=== PATIENT | male | born 1975 | race American Indian/Alaskan Native ===

== ENCOUNTER 2017-12-06 16:07 | Emergency (ER) | payer OTHER ==
[2017-12-06] MEDS ORDERED: Ibuprofen 800 MG Tab PO ONE (16:37)
--- NOTE | 2017-12-06 17:00 | EDM.PDOC ---
ED HPI GENERAL MEDICAL PROBLEM - General Chief Complaint: General Stated Complaint: CHILLS,FEVER,SOB Time Seen by Provider: 12/06/17 16:27 Source of Information: Reports: Patient History Limitations: Reports: No Limitations - History of Present Illness INITIAL COMMENTS - FREE TEXT/NARRATIVE: The patient presents with fever, chills, cough, shortness of breath with exertion and body aches. This started yesterday. He went to the clinic and they did a swab and CXR and that looked good. He continues with the same symptoms. He has no chest pain. He has no abdominal pain, nausea or vomiting. Onset: Gradual Duration: Day(s): (Yesterday) Severity: Moderate Improves with: Reports: None Worsens with: Reports: None Associated Symptoms: Reports: Cough, Fever/Chills. Denies: Chest Pain, Nausea/ Vomiting, Shortness of Breath Generalized Pain Score (Numeric/FACES): 6 - Related Data Allergies Allergy/AdvReac Type Severity Reaction Status Date / Time sulfamethoxazole AdvReac Diarrhea Verified 12/06/17 16:16 [From Bactrim] trimethoprim [From Bactrim] AdvReac Diarrhea Verified 12/06/17 16:16 Home Meds: Home Meds Aspirin 1 tab PO DAILY 12/06/17 [History] Azithromycin [IJD: Azithromycin] 250 mg PO DAILY #6 tab 12/06/17 [Rx] Codeine/Promethazine [Phenergan with Codeine] 5 - 10 ml PO Q6HR PRN #240 ml 04/17 [Rx] FLUoxetine HCl [Fluoxetine] 10 mg PO DAILY 12/06/17 [History] Hydrochlorothiazide 10 mg PO DAILY 12/06/17 [History] Insulin Aspart [NovoLOG] 1 dose SQ ASDIRECTED 12/06/17 [History] Insulin Glarg,Human.Rec.Analog [Lantus] 50 unit SQ BEDTIME 12/06/17 [History] Lisinopril 10 mg PO DAILY 12/06/17 [History] Simvastatin [Zocor] 25 mg PO DAILY 12/06/17 [History] buPROPion [Wellbutrin] 25 mg PO DAILY 12/06/17 [History] Past Medical History Cardiovascular History: Reports: High Cholesterol, Hypertension Respiratory History: Reports: Pneumonia, Recurrent Musculoskeletal History: Reports: Amputation, Other (See Below) Other Musculoskeletal History: Left big toe amputated in Sep 2017 d/t infection. Endocrine/Metabolic History: Reports: Diabetes, Type II - Past Surgical History Musculoskeletal Surgical History: Reports: Amputation Social & Family History - Family History Family Medical History: Noncontributory - Tobacco Use Smoking Status *Q: Light Tobacco Smoker Years of Tobacco use: 17 Packs/Tins Daily: 0.1 - Caffeine Use Caffeine Use: Reports: Coffee, Soda - Recreational Drug Use Recreational Drug Use: No ED ROS GENERAL - Review of Systems Review Of Systems: See Below Constitutional: Reports: Fever, Chills, Malaise, Weakness, Fatigue HEENT: Reports: No Symptoms Respiratory: Reports: No Symptoms Cardiovascular: Reports: No Symptoms Endocrine: Reports: No Symptoms GI/Abdominal: Reports: No Symptoms : Reports: No Symptoms Musculoskeletal: Reports: No Symptoms ED EXAM, GENERAL - Physical Exam Exam: See Below Exam Limited By: No Limitations General Appearance: Alert, No Apparent Distress Ears: Normal External Exam, Normal Canal, Normal TMs Nose: Normal Inspection Throat/Mouth: Normal Inspection Head: Atraumatic, Normocephalic Neck: Normal Inspection Respiratory/Chest: No Respiratory Distress, Lungs Clear, Normal Breath Sounds Cardiovascular: Regular Rate, Rhythm, No Edema, No Murmur GI/Abdominal: Soft, Non-Tender, No Organomegaly, No Mass Back Exam: Normal Inspection Extremities: Normal Inspection Course - Vital Signs Last Recorded V/S: Last Vital Signs Temp 101.8 F H 12/06/17 16:52 Pulse 102 H 12/06/17 16:16 Resp 18 12/06/17 16:16 BP 149/85 H 12/06/17 16:16 Pulse Ox 95 12/06/17 16:16 - Orders/Labs/Meds Orders: Active Orders 24 hr Category Date Time Status Cardiac Monitoring [RC] . DIRECTED Care 12/06/17 16:36 Active Chest 2V [CR] Stat Exams 12/06/17 16:36 Taken Labs: Laboratory Tests 12/06/17 12/06/17 12/06/17 Range/Units 16:55 16:55 16:55 WBC 11.72 H (4.23-9.07) K/mm3 RBC 4.89 (4.63-6.08) M/mm3 Hgb 13.3 L (13.7-17.5) gm/L Hct 39.5 L (40.1-51.0) % MCV 80.8 (79.0-92.2) fl MCH 27.2 (25.7-32.2) pg MCHC 33.7 (32.2-35.5) g/dl RDW Std Deviation 43.9 (35.1-43.9) fL Plt Count 222 (163-337) K/mm3 MPV 9.5 (9.4-12.3) fl Neut % (Auto) 93.4 H (34.0-67.9) % Lymph % (Auto) 2.8 L (21.8-53.1) % Bradford % (Auto) 3.2 L (5.3-12.2) % Eos % (Auto) 0.3 L (0.8-7.0) Baso % (Auto) 0.1 (0.1-1.2) % Neut # (Auto) 10.95 H (1.78-5.38) K/mm3 Lymph # (Auto) 0.33 L (1.32-3.57) K/mm3 Bradford # (Auto) 0.38 (0.30-0.82) K/mm3 Eos # (Auto) 0.03 L (0.04-0.54) K/mm3 Baso # (Auto) 0.01 (0.01-0.08) K/mm3 Manual Slide Review Normal smear Sodium 136 (136-145) mEq/L Potassium 3.7 (3.5-5.1) mEq/L Chloride 102 (98-107) mEq/L Carbon Dioxide 25 (21-32) mEq/L Anion Gap 12.7 (5-15) BUN 13 (7-18) mg/dL Creatinine 1.0 (0.7-1.3) mg/dL Est Cr Clr Drug Dosing 115.01 mL/min Estimated GFR (MDRD) > 60 (>60) mL/min BUN/Creatinine Ratio 13.0 L (14-18) Glucose 131 H (74-106) mg/dL Calcium 8.7 (8.5-10.1) mg/dL Total Bilirubin 0.4 (0.2-1.0) mg/dL AST 20 (15-37) U/L ALT 30 (16-63) U/L Alkaline Phosphatase 131 H (46-116) U/L C-Reactive Protein 3.7 H* (<1.0) mg/dL Total Protein 7.5 (6.4-8.2) g/dl Albumin 3.3 L (3.4-5.0) g/dl Globulin 4.2 gm/dL Albumin/Globulin Ratio 0.8 L (1-2) Monoscreen Negative (NEGATIVE) Meds: Medications Discontinued Medications Generic Name Dose Route Start Last Admin Trade Name Freq PRN Reason Stop Dose Admin Ibuprofen 800 mg 12/06/17 16:37 12/06/17 16:52 Motrin PO 12/06/17 16:38 800 mg ONETIME ONE Administration - Re-Assessments/Exams Free Text/Narrative Re-Assessment/Exam: 12/06/17 16:59 I ordered some labs, influenza and CXR. 12/06/17 18:22 His CXR shows bronchitis versus early pneumonia on the right side. His influenza and mono were negative. His WBC was elevated at 11.72. His CRP was elevated at 3.7. I will get him on a z-kirit and phenergan with codeine for the cough. Departure - Departure Time of Disposition: 18:25 Disposition: Home, Self-Care 01 Condition: Good Clinical Impression: Bronchitis - Discharge Information Prescriptions: Codeine/Promethazine [Phenergan with Codeine] 5 - 10 ml PO Q6HR PRN #240 ml PRN Reason: Cough Azithromycin [IJD: Azithromycin] 250 mg PO DAILY #6 tab Referrals: PCP,None [Primary Care Provider] - Collin Schrader [Physician] - 1 Week Forms: ED Department Discharge, ED Return to Work/School Form Additional Instructions: Take the z-kirit as prescribed. You can use the phenergan with codeine 5 to 10mLs every 6 hours as needed for cough. Please return if you are worse or follow up with Dr Schrader within 1 week. - My Orders Last 24 Hours: My Active Orders 12/06/17 16:36 Cardiac Monitoring [RC] . DIRECTED Chest 2V [CR] Stat - Assessment/Plan Last 24 Hours: My Active Orders 12/06/17 16:36 Cardiac Monitoring [RC] . DIRECTED Chest 2V [CR] Stat
--- NOTE | 2017-12-07 06:25 | CR ---
Chest: Two views of the chest were obtained. Comparison: No previous study. Heart size and mediastinum are normal. Central lung markings are slightly increased which are likely incidental unless patient has mild bronchitis symptoms. Lungs are otherwise clear. Bony structures are unremarkable. Impression: 1. Slight increased central lung markings likely incidental as described above. 2. Nothing acute is otherwise seen on two-view chest x-ray. Diagnostic code #2
== END 2017-12-06 18:35 | disposition home or self-care (01) ==
LOC: JD.ED 16:07
DX: J40 Bronchitis, not specified as acute or chronic (principal); E78.00 Pure hypercholesterolemia, unspecified; I10 Essential (primary) hypertension; E11.9 Type 2 diabetes mellitus without complications; F17.210 Nicotine dependence, cigarettes, uncomplicated; Z88.2 Allergy status to sulfonamides; Z88.1 Allergy status to other antibiotic agents; Z79.82 Long term (current) use of aspirin; Z79.899 Other long term (current) drug therapy; Z79.4 Long term (current) use of insulin
CPT/HCPCS: 36415; 71046; 80053; 85025; 86140; 86308; 87804; 99284; A9270; 99283

== ENCOUNTER 2017-12-09 07:27 | Emergency (ER) | payer OTHER ==
--- NOTE | 2017-12-09 08:03 | EDM.PDOC ---
ED HPI GENERAL MEDICAL PROBLEM - General Chief Complaint: Upper Extremity Injury/Pain Stated Complaint: SHOULDER PAIN Time Seen by Provider: 12/09/17 07:50 Source of Information: Reports: Patient, Family (spouse) History Limitations: Reports: No Limitations - History of Present Illness INITIAL COMMENTS - FREE TEXT/NARRATIVE: 42-year-old male presents to the ED with painful right shoulder 3 days. No known injuries or accidents. 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 At present he states there is a constant ache in the anterior aspect of his shoulder worse when he tries to lay on it at nighttime. He has very limited ability to abduct or forward flex the shoulder. Previous fractures. He has had a previous anterior dislocation of the shoulder. Denies any numbness and tingling down to his fingers or hand. Onset: Gradual Onset Date: 12/06/17 Duration: Day(s):, Getting Worse (Pain in the right shoulder for the last 3 days gradually getting worse.) Location: Reports: Upper Extremity, Right Quality: Reports: Ache, Throbbing, Other (Worse at nighttime) Severity: Moderate (Describes the pain as 8 out of 10.) Improves with: Reports: Rest Worsens with: Reports: Movement (Particularly abduction are 4 and flexion.) Context: Denies: Activity, Exercise, Lifting, Sick Contact, Trauma, Other Associated Symptoms: Denies: No Other Symptoms, Confusion, Chest Pain, Cough, cough w sputum, Diaphoresis, Fever/Chills, Headaches, Loss of Appetite, Malaise , Rash, Seizure, Shortness of Breath, Syncope 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: NSAIDS (Motrin with some relief.) Right Shoulder Pain Score (Numeric/FACES): 8 - Related Data Allergies Allergy/AdvReac Type Severity Reaction Status Date / Time sulfamethoxazole AdvReac Diarrhea Verified 12/09/17 07:42 [From Bactrim] trimethoprim [From Bactrim] AdvReac Diarrhea Verified 12/09/17 07:42 Home Meds: Home Meds Aspirin 1 tab PO DAILY 12/06/17 [History] Hydrochlorothiazide 10 mg PO DAILY 12/06/17 [History] Insulin Aspart [NovoLOG] 1 dose SQ ASDIRECTED 12/06/17 [History] Insulin Glarg,Human.Rec.Analog [Lantus] 45 unit SQ BEDTIME 12/06/17 [History] Lisinopril 10 mg PO DAILY 12/06/17 [History] Simvastatin [Zocor] 20 mg PO DAILY 12/06/17 [History] Diclofenac Sodium [Voltaren] 75 mg PO BIDMEALS #20 tab.cr 12/09/17 [Rx] Prednisone [IJD: predniSONE] 20 mg PO ASDIRECTED #15 tab 12/09/17 [Rx] oxyCODONE HCl/Acetaminophen [Percocet 5-325 mg Tablet] 1 - 2 each PO Q4H PRN # 16 tablet 12/09/17 [Rx] Past Medical History Cardiovascular History: Reports: High Cholesterol, Hypertension Respiratory History: Reports: Pneumonia, Recurrent Musculoskeletal History: Reports: Amputation, Other (See Below) Other Musculoskeletal History: Left big toe amputated in Sep 2017 d/t infection. Endocrine/Metabolic History: Reports: Diabetes, Type II (Controlled with insulin and diet.) - Past Surgical History Musculoskeletal Surgical History: Reports: Amputation Social & Family History - Family History Family Medical History: Noncontributory - Tobacco Use Smoking Status *Q: Never Smoker Years of Tobacco use: 17 Packs/Tins Daily: 0.1 - Caffeine Use Caffeine Use: Reports: Coffee, Soda - Recreational Drug Use Recreational Drug Use: No - Living Situation & Occupation Living situation: Reports: Single Occupation: Employed Review of Systems - Review of Systems Review Of Systems: See Below Constitutional: Reports: No Symptoms Eyes: Reports: No Symptoms Ears: Reports: No Symptoms Nose: Reports: No Symptoms Mouth/Throat: Reports: No Symptoms Respiratory: Reports: No Symptoms Cardiovascular: Reports: No Symptoms, Lightheadedness Musculoskeletal: Reports: Shoulder Pain, Arm Pain Skin: Reports: No Symptoms (See history of present illness) Neurological: Reports: No Symptoms Psychiatric: Reports: No Symptoms ED EXAM, GENERAL - Physical Exam Exam: See Below Exam Limited By: No Limitations General Appearance: Alert, WD/WN, No Apparent Distress Eye Exam: Bilateral Eye: Normal Inspection Neck: Normal Inspection, Supple, Non-Tender, Full Range of Motion, Other (No evidence of referred pain into the shoulder from the neck.). No: Lymphadenopathy (L), Lymphadenopathy (R) Respiratory/Chest: No Respiratory Distress, Lungs Clear, Normal Breath Sounds, No Accessory Muscle Use, Chest Non-Tender Cardiovascular: Normal Peripheral Pulses, Regular Rate, Rhythm, No Edema, No Gallop, No Murmur, No Rub Peripheral Pulses: 2+: Radial (L), Radial (R) Extremities: Other (Examination of his right shoulder reveals good pronation supination at the elbow. There is pain along the distribution of the short head of the biceps tendon along the anterior shoulder. He has no evidence of acute for rotator cuff tear. He has limited ability to hold his abducted arm 45 out from his body due to pain in the distal wrist of the supraspinatus tendon. Deltoid tendon appears to be intact. There is no anterior instability of the shoulder. Clinically has a combination biceps and supraspinatus tendinitis.) Neurological: Alert, Oriented, CN II-XII Intact, Normal Cognition, Normal Gait Psychiatric: Normal Affect, Normal Mood Skin Exam: Warm, Dry, Intact, Normal Color, No Rash Course - Vital Signs Last Recorded V/S: Last Vital Signs Temp 35.6 C 12/09/17 07:44 Pulse 85 12/09/17 07:44 Resp 16 12/09/17 07:44 BP 141/84 H 12/09/17 07:44 Pulse Ox 96 12/09/17 07:44 - Orders/Labs/Meds Orders: Active Orders 24 hr Category Date Time Status Shoulder Comp Rt [CR] Stat Exams 12/09/17 07:58 Taken - Radiology Interpretation Free Text/Narrative:: 42-year-old male presents the ED with painful right shoulder for the last 3-4 days with no apparent injuries. Clinically he has evidence of a short head of biceps tendinitis as well as supraspinatus tendinitis. He will be for an x-ray of his right shoulder to see if there is any spurring off the inferior aspect of the acromion. He is an insulin-dependent diabetic therefore this limits ability to treat with steroids for very long and NSAIDs are relatively contraindicated due to potential interstitial nephritis of the kidneys. - Re-Assessments/Exams Free Text/Narrative Re-Assessment/Exam: 12/09/17 08:16 x-ray of the right shoulder appears to be within normal limits with no sign of significant spurring off the acromion process. Departure - Departure Time of Disposition: 08:20 Disposition: Home, Self-Care 01 Condition: Fair Clinical Impression: Biceps tendonitis on right Supraspinatus tendonitis Qualifiers: Laterality: right Qualified Code(s): M75.91 - Shoulder lesion, unspecified, right shoulder - Discharge Information Prescriptions: Diclofenac Sodium [Voltaren] 75 mg PO BIDMEALS #20 tab.cr oxyCODONE HCl/Acetaminophen [Percocet 5-325 mg Tablet] 1 - 2 each PO Q4H PRN # 16 tablet PRN Reason: pain relief. Prednisone [IJD: predniSONE] 20 mg PO ASDIRECTED #15 tab Instructions: Tendinitis, [id number] Referrals: PCP,Not In Area [Primary Care Provider] - Forms: ED Department Discharge, ED Return to Work/School Form Additional Instructions: Evaluation the emergency room today in regards to painful right shoulder movement over the last 3 days. Examination reveals a short head of biceps tendinitis as well as supraspinatus tendinitis limiting range of motion of your right shoulder. X-ray of the shoulder proved to be completely normal from the bone point of view. It is tendons that are causing her pain and inflammation. Treatment is reduction of inflammation in the shoulder with medications Voltaren 75 mg twice daily for the next 10 days ideally with breakfast and supper. Also Deltasone or prednisone 20 mg with breakfast and supper for 5 days then 1 tablet in the morning only for another 5 days. Of note this medication will elevate her blood sugars temporarily well on this medication. Need to have increased insulin usage while on this medication. Pain medication is Percocet 5/ 325 milligram tabs likely will need to tablets at bedtime to help reduce pain and aching so that you can sleep. Indication primarily should be taken at bedtime only. If not markedly improved in 10-14 days then follow-up with Dr. García--orthopedic surgeon second floor of the hospital on the [facility] is indicated. Please call [phone] to arrange an appointment. - My Orders Last 24 Hours: My Active Orders 12/09/17 07:58 Shoulder Comp Rt [CR] Stat - Assessment/Plan Last 24 Hours: My Active Orders 12/09/17 07:58 Shoulder Comp Rt [CR] Stat
--- NOTE | 2017-12-09 13:52 | CR ---
Right shoulder: Three views of the right shoulder were obtained. Comparison: No prior shoulder study. Acromioclavicular and glenohumeral joints appear within normal limits. No acute fracture or other abnormality is appreciated. Impression: 1. No abnormality is identified on three-view right shoulder study. Diagnostic code #1 MTDD
== END 2017-12-09 08:35 | disposition home or self-care (01) ==
LOC: JD.ED 07:27
DX: M75.21 Bicipital tendinitis, right shoulder (principal); M75.81 Other shoulder lesions, right shoulder; I10 Essential (primary) hypertension; E78.00 Pure hypercholesterolemia, unspecified; E11.9 Type 2 diabetes mellitus without complications; Z88.1 Allergy status to other antibiotic agents; Z79.4 Long term (current) use of insulin; Z79.899 Other long term (current) drug therapy; Z79.82 Long term (current) use of aspirin; Z72.0 Tobacco use
CPT/HCPCS: 73030-26-RT; 73030-RT; 99283

== ENCOUNTER 2017-12-14 21:04 | Emergency (ER) | payer OTHER ==
--- NOTE | 2017-12-14 21:45 | EDM.PDOC ---
ED HPI GENERAL MEDICAL PROBLEM - General Chief Complaint: Upper Extremity Injury/Pain Stated Complaint: RIGHT SHOULDER PAIN Time Seen by Provider: 12/14/17 21:30 Source of Information: Reports: Patient History Limitations: Reports: No Limitations - History of Present Illness INITIAL COMMENTS - FREE TEXT/NARRATIVE: The patient presents with right shoulder pain. He was here last week for right shoulder pain. He slipped and fell today and reinjured his right shoulder. He has no headache. He dose have some right lateral neck pain. He has no numbness or weakness to his right arm. Onset: Sudden Duration: Minutes: Location: Reports: Upper Extremity, Right (Shoulder) Quality: Reports: Sharp Severity: Moderate Improves with: Reports: Immobilization Worsens with: Reports: Movement Context: Reports: Trauma (Fell) Associated Symptoms: Reports: No Other Symptoms right dorsal shoulder Pain Score (Numeric/FACES): 8 - Related Data Allergies Allergy/AdvReac Type Severity Reaction Status Date / Time sulfamethoxazole AdvReac Diarrhea Verified 12/14/17 21:14 [From Bactrim] trimethoprim [From Bactrim] AdvReac Diarrhea Verified 12/14/17 21:14 Home Meds: Home Meds Aspirin 1 tab PO DAILY 12/06/17 [History] Hydrochlorothiazide 10 mg PO DAILY 12/06/17 [History] Insulin Aspart [NovoLOG] 1 dose SQ ASDIRECTED 12/06/17 [History] Insulin Glarg,Human.Rec.Analog [Lantus] 45 unit SQ BEDTIME 12/06/17 [History] Lisinopril 10 mg PO DAILY 12/06/17 [History] Simvastatin [Zocor] 20 mg PO DAILY 12/06/17 [History] Diclofenac Sodium [Voltaren] 75 mg PO BIDMEALS #20 tab.cr 12/09/17 [Rx] Prednisone [IJD: predniSONE] 20 mg PO ASDIRECTED #15 tab 12/09/17 [Rx] oxyCODONE HCl/Acetaminophen [Percocet 5-325 mg Tablet] 1 - 2 each PO Q4H PRN # 16 tablet 12/09/17 [Rx] Past Medical History HEENT History: Reports: Other (See Below) Other HEENT History: blurred vision at times related to diabetes Cardiovascular History: Reports: High Cholesterol, Hypertension Respiratory History: Reports: Pneumonia, Recurrent Musculoskeletal History: Reports: Amputation, Other (See Below) Other Musculoskeletal History: Left big toe amputated in Sep 2017 d/t infection. Endocrine/Metabolic History: Reports: Diabetes, Type II - Past Surgical History Musculoskeletal Surgical History: Reports: Amputation Social & Family History - Family History Family Medical History: Noncontributory - Tobacco Use Smoking Status *Q: Never Smoker Years of Tobacco use: 17 Packs/Tins Daily: 0.1 - Caffeine Use Caffeine Use: Reports: Soda - Recreational Drug Use Recreational Drug Use: No - Living Situation & Occupation Living situation: Reports: Single Occupation: Employed Review of Systems - Review of Systems Review Of Systems: See Below Constitutional: Reports: No Symptoms Eyes: Reports: No Symptoms Ears: Reports: No Symptoms Nose: Reports: No Symptoms Mouth/Throat: Reports: No Symptoms Respiratory: Reports: No Symptoms Cardiovascular: Reports: No Symptoms GI/Abdominal: Reports: No Symptoms Genitourinary: Reports: No Symptoms Musculoskeletal: Reports: Shoulder Pain (Right) ED EXAM, GENERAL - Physical Exam Exam: See Below Exam Limited By: No Limitations General Appearance: Alert, No Apparent Distress Ears: Normal External Exam Nose: Normal Inspection Head: Atraumatic, Normocephalic Neck: Normal Inspection, Supple, Non-Tender, Full Range of Motion Respiratory/Chest: No Respiratory Distress, Lungs Clear, Normal Breath Sounds Cardiovascular: Regular Rate, Rhythm, No Edema, No Murmur GI/Abdominal: Soft, Non-Tender, No Organomegaly, No Mass Back Exam: Normal Inspection Extremities: Other (Pain upon palpation to the lateral shoulder. Good sensation and pulses distally.) Course - Vital Signs Last Recorded V/S: Last Vital Signs Temp 99.2 F 12/14/17 21:06 Pulse 96 12/14/17 21:06 Resp 18 12/14/17 21:06 BP 138/92 H 12/14/17 21:06 Pulse Ox 96 12/14/17 21:06 - Orders/Labs/Meds Orders: Active Orders 24 hr Category Date Time Status Shoulder Comp Rt [CR] Stat Exams 12/14/17 21:36 Taken Acetaminophen/oxyCODONE [Percocet 325-5 MG] Med 12/14/17 22:19 Once 2 tab PO ONETIME ONE - Re-Assessments/Exams Free Text/Narrative Re-Assessment/Exam: 12/14/17 21:45 I have ordered another x-ray. 12/14/17 22:20 His x-ray shows nothing acute. I will give him some percocet now. I will give him another prescription. Departure - Departure Time of Disposition: 22:10 Disposition: Home, Self-Care 01 Condition: Good Clinical Impression: Right shoulder pain Qualifiers: Chronicity: acute Qualified Code(s): M25.511 - Pain in right shoulder - Discharge Information Referrals: PCP,None [Primary Care Provider] - Micheal García MD [Physician] - 2 Weeks Forms: ED Department Discharge, ED Return to Work/School Form Additional Instructions: Ice your shoulder for 15 minutes every other hour while awake for 2 days. Take the precocet as needed for pain and the other meds that you were prescribed. Follow up with Dr García. - My Orders Last 24 Hours: My Active Orders 12/14/17 21:36 Shoulder Comp Rt [CR] Stat 12/14/17 22:19 Acetaminophen/oxyCODONE [Percocet 325-5 MG] 2 tab PO ONETIME ONE - Assessment/Plan Last 24 Hours: My Active Orders 12/14/17 21:36 Shoulder Comp Rt [CR] Stat 12/14/17 22:19 Acetaminophen/oxyCODONE [Percocet 325-5 MG] 2 tab PO ONETIME ONE
[2017-12-14] MEDS ORDERED: Acetaminophen/oxyCODONE 325-5 MG Tab PO ONE (22:19)
--- NOTE | 2017-12-15 07:49 | CR ---
Right shoulder: Three views of the right shoulder were obtained. Comparison: Prior right shoulder study of 12/09/17. Acromioclavicular and glenohumeral joints appear within normal limits. No acute fracture, dislocation or other bony abnormality is seen. Impression: 1. Nothing acute is seen on three-view right shoulder study. No significant change is seen from prior right shoulder exam. Diagnostic code #1
== END 2017-12-14 22:25 | disposition home or self-care (01) ==
LOC: JD.ED 21:04
DX: M25.511 Pain in right shoulder (principal); I10 Essential (primary) hypertension; E11.9 Type 2 diabetes mellitus without complications; Z88.8 Allergy status to other drugs, medicaments and biological substances; Z88.2 Allergy status to sulfonamides; Z79.899 Other long term (current) drug therapy
CPT/HCPCS: 73030; 99284; A9270; 99283

== ENCOUNTER 2021-08-03 17:09 | Emergency (ER) | payer OTHER ==
[2021-08-03] MEDS ORDERED: Sodium Chloride 0.9% 1,000 ML IV ONE (20:03)
--- NOTE | 2021-08-03 20:45 | EDM.PDOC ---
ED HPI GENERAL MEDICAL PROBLEM - General Chief Complaint: Fever Stated Complaint: R FOOT ULCER-DIABETIC/FEVER Time Seen by Provider: 08/03/21 19:59 Source of Information: Reports: Patient, Family () History Limitations: Reports: No Limitations - History of Present Illness INITIAL COMMENTS - FREE TEXT/NARRATIVE: Mr. Turner is a very pleasant 46-year-old gentleman with a past medical history significant for diabetes, who now presents the ED stating that he has been dealing with a diabetic ulcer over the plantar aspect of his right 1st MTP joint for the past 2 years. He keeps the wound clean with soap and water when he bathes, applies an antibiotic ointment to it, and bandages it, in accordance with the instructions of his Slot Technician, who he last saw about 3 weeks ago. The patient then developed a fever this past , 07/30/2021, with a T-max of 102.4 degrees today. He is concerned that his fever is due to an infection. He has already had a total of 3 toes amputaqted due to infections. The patient states that he has been taking Tylenol, with his most recent dose around 14:00 this afternoon. The patient states that he checks his blood glucose anywhere from 1-6 times a day, most recently just prior to coming to the ED, at which time it was 160. That is high for him; he states that his blood glucose is normally around 100. Here in the ED, the patient's initial BP was mildly depressed at 96/59, otherwise, he was hemodynamically stable, afebrile, saturating 96% on room air. He appeared to be relatively comfortable, in no acute distress. Prior to , the patient denies having a recent fever, chills, sore throat, ear pain, nasal or sinus congestion, cough, dyspnea, chest pain, palpitations, nausea, vomiting, constipation, diarrhea, abdominal pain, urinary symptoms, recent weight gain or weight loss, recent bloody bowel movements or black bowel movements, recent joint aches, headaches, or rashes. The patient's PCP is at [facility]. His Slot Technician is Dr. Slade Patel. He has received 2 COVID vaccinations. Right Foot Pain Score (Numeric/FACES): 3 - Related Data Allergies Allergy/AdvReac Type Severity Reaction Status Date / Time sulfamethoxazole AdvReac Diarrhea Verified 10/05/21 00:26 [From Bactrim] trimethoprim [From Bactrim] AdvReac Diarrhea Verified 08/04/21 00:26 Home Meds: Home Meds Insulin Aspart [NovoLOG] 0 dose SQ TID 12/06/17 [History] Insulin Glarg,Human.Rec.Analog [Lantus] 50 unit SQ BEDTIME 12/06/17 [History] Lisinopril 10 mg PO DAILY 12/06/17 [History] Simvastatin [Zocor] 20 mg PO DAILY 12/06/17 [History] buPROPion [Wellbutrin] 75 mg PO DAILY 08/19/18 [History] Empagliflozin [Jardiance] 10 mg PO DAILY 08/03/21 [History] Past Medical History Cardiovascular History: Reports: High Cholesterol, Hypertension Psychiatric History: Reports: Anxiety, Depression Endocrine/Metabolic History: Reports: Diabetes, Type II, Obesity/BMI 30+ - Past Surgical History Respiratory Surgical History: Reports: Other (See Below) (Left chest tubes x 2) Musculoskeletal Surgical History: Reports: Amputation (left 1st and 2nd toes, right 2nd toe), Other (See Below) (Left quadriceps tendon repair x 3) Social & Family History - Tobacco Use Tobacco Use Status *Q: Former Tobacco User Tobacco Use Within Last Twelve Months: Smokeless Tobacco (Occasionally chews) Years of Tobacco use: 25 Packs/Tins Daily: 0.2 Month/Year Tobacco Last Used: Quit 2010 Tobacco Use Comment: Started smoking 1985 - Caffeine Use Caffeine Use: Reports: Coffee - Alcohol Use Alcohol Use History: Yes Alcohol Use Frequency: Socially - Recreational Drug Use Recreational Drug Use: No - Living Situation & Occupation Living situation: Reports: , with Spouse Occupation: Unemployed ED ROS GENERAL - Review of Systems Review Of Systems: Comprehensive ROS is negative, except as noted in HPI. ED EXAM, SEPSIS - Physical Exam Exam: See Below Exam Limited By: No Limitations General Appearance: Alert, WD/WN, No Apparent Distress Eye Exam: Bilateral Eye: EOMI, Normal Inspection Ears: Normal External Exam, Hearing Grossly Normal Nose: Normal Inspection Throat/Mouth: Normal Inspection, Normal Lips, Normal Voice, No Airway Compromise Head: Atraumatic, Normocephalic Neck: Normal Inspection, Full Range of Motion Respiratory/Chest: No Respiratory Distress, Lungs Clear, Normal Breath Sounds, No Accessory Muscle Use Cardiovascular: Normal Peripheral Pulses, Regular Rate, Rhythm, No Gallop, No JVD, No Murmur, No Rub Peripheral Pulses: 3+: Radial (L), Radial (R) GI/Abdominal Exam: Normal Bowel Sounds, Soft, Non-Tender, No Organomegaly, No Distention, No Abnormal Bruit, No Mass, Pelvis Stable Back: Normal Inspection, Full Range of Motion, NT Extremities: Normal Range of Motion, Normal Capillary Refill, Other (Thick callus measuring approximately 2 cm diameter to the plantar aspect of the patient's right foot, over his 1st MTP. No fluctuance or drainage. Rt 2nd toe amputated. Abrasion to the plantar aspect under the patient's 3rd and 4th MTPs.) Neurological: Alert, Oriented, Normal Cognition, No Motor/Sensory Deficits Psychiatric: Normal Affect Skin: Warm, Dry, Intact, Normal Color, No Rash Course - Vital Signs Last Recorded V/S: Last Vital Signs Temp 37.6 C 08/03/21 18:34 Pulse 84 08/03/21 18:34 Resp 20 08/03/21 18:34 BP 96/59 L 08/03/21 18:34 Pulse Ox 96 08/03/21 18:34 - Orders/Labs/Meds Orders: Active Orders 24 hr Category Date Time Status Ang Chest [CT] Stat Exams 08/03/21 21:35 Taken BLOOD CULTURE [MREF] Stat Lab 08/03/21 21:10 Received BLOOD CULTURE [MREF] Stat Lab 08/03/21 21:20 Received Blood Culture x2 Reflex Set [OM.PC] Stat Oth 08/03/21 20:40 Ordered Labs: Laboratory Tests 08/03/21 08/03/21 08/03/21 Range/Units 20:18 20:18 20:18 WBC 8.49 (4.23-9.07) K/mm3 RBC 5.02 (4.63-6.08) M/mm3 Hgb 13.8 (13.7-17.5) gm/dl Hct 42.2 (40.1-51.0) % MCV 84.1 (79.0-92.2) fl MCH 27.5 (25.7-32.2) pg MCHC 32.7 (32.2-35.5) g/dl RDW Std Deviation 43.1 (35.1-43.9) fL Plt Count 194 (163-337) K/mm3 MPV 9.7 (9.4-12.3) fl Neutrophils % (Manual) 76 H (40-60) % Band Neutrophils % 2 (0-10) % Lymphocytes % (Manual) 12 L (20-40) % Atypical Lymphs % 0 % Monocytes % (Manual) 9 (2-10) % Eosinophils % (Manual) 1 (0.8-7.0) % Basophils % (Manual) 0 L (0.2-1.2) Platelet Estimate Adequate RBC Morph Comment Normal D-Dimer, Quantitative 1.10 H (0.19-0.50) mg/L Sodium 138 (136-145) mEq/L Potassium 4.0 (3.5-5.1) mEq/L Chloride 102 (98-107) mEq/L Carbon Dioxide 29 (21-32) mEq/L Anion Gap 11.0 (5-15) BUN 23 H (7-18) mg/dL Creatinine 1.1 (0.7-1.3) mg/dL Est Cr Clr Drug Dosing 100.29 mL/min Estimated GFR (MDRD) > 60 (>60) mL/min BUN/Creatinine Ratio 20.9 H (14-18) Glucose 119 H (70-99) mg/dL Lactic Acid (0.4-2.0) mmol/L Calcium 8.8 (8.5-10.1) mg/dL Magnesium 2.1 (1.8-2.4) mg/dL Total Bilirubin 0.3 (0.2-1.0) mg/dL AST 23 (15-37) U/L ALT 29 (16-63) U/L Alkaline Phosphatase 114 (46-116) U/L C-Reactive Protein (<1.0) mg/dL Total Protein 7.5 (6.4-8.2) g/dl Albumin 2.9 L (3.4-5.0) g/dl Globulin 4.6 gm/dL Albumin/Globulin Ratio 0.6 L (1-2) Urine Color (Yellow) Urine Appearance (Clear) Urine pH (5.0-8.0) Ur Specific [place] (1.005-1.030) Urine Protein (Negative) Urine Glucose (UA) (Negative) Urine Ketones (Negative) Urine Occult Blood (Negative) Urine Nitrite (Negative) Urine Bilirubin (Negative) Urine Urobilinogen (0.2-1.0) Ur Leukocyte Esterase (Negative) Urine RBC (0-5) /hpf Urine WBC (0-5) /hpf Ur Squamous Epith Cells (0-5) /hpf Urine Bacteria (FEW) /hpf Urine Mucus (FEW) /hpf Ketones (0.0-0.3) mM Influenza Type A RNA (NEGATIVE) Influenza Type B RNA (NEGATIVE) SARS-CoV-2 RNA (PETRA) (NEGATIVE) 08/03/21 08/03/21 08/03/21 Range/Units 20:18 20:18 21:10 WBC (4.23-9.07) K/mm3 RBC (4.63-6.08) M/mm3 Hgb (13.7-17.5) gm/dl Hct (40.1-51.0) % MCV (79.0-92.2) fl MCH (25.7-32.2) pg MCHC (32.2-35.5) g/dl RDW Std Deviation (35.1-43.9) fL Plt Count (163-337) K/mm3 MPV (9.4-12.3) fl Neutrophils % (Manual) (40-60) % Band Neutrophils % (0-10) % Lymphocytes % (Manual) (20-40) % Atypical Lymphs % % Monocytes % (Manual) (2-10) % Eosinophils % (Manual) (0.8-7.0) % Basophils % (Manual) (0.2-1.2) Platelet Estimate RBC Morph Comment D-Dimer, Quantitative (0.19-0.50) mg/L Sodium (136-145) mEq/L Potassium (3.5-5.1) mEq/L Chloride (98-107) mEq/L Carbon Dioxide (21-32) mEq/L Anion Gap (5-15) BUN (7-18) mg/dL Creatinine (0.7-1.3) mg/dL Est Cr Clr Drug Dosing mL/min Estimated GFR (MDRD) (>60) mL/min BUN/Creatinine Ratio (14-18) Glucose (70-99) mg/dL Lactic Acid 0.8 (0.4-2.0) mmol/L Calcium (8.5-10.1) mg/dL Magnesium (1.8-2.4) mg/dL Total Bilirubin (0.2-1.0) mg/dL AST (15-37) U/L ALT (16-63) U/L Alkaline Phosphatase (46-116) U/L C-Reactive Protein 6.5 H* (<1.0) mg/dL Total Protein (6.4-8.2) g/dl Albumin (3.4-5.0) g/dl Globulin gm/dL Albumin/Globulin Ratio (1-2) Urine Color (Yellow) Urine Appearance (Clear) Urine pH (5.0-8.0) Ur Specific [place] (1.005-1.030) Urine Protein (Negative) Urine Glucose (UA) (Negative) Urine Ketones (Negative) Urine Occult Blood (Negative) Urine Nitrite (Negative) Urine Bilirubin (Negative) Urine Urobilinogen (0.2-1.0) Ur Leukocyte Esterase (Negative) Urine RBC (0-5) /hpf Urine WBC (0-5) /hpf Ur Squamous Epith Cells (0-5) /hpf Urine Bacteria (FEW) /hpf Urine Mucus (FEW) /hpf Ketones 0.05 (0.0-0.3) mM Influenza Type A RNA (NEGATIVE) Influenza Type B RNA (NEGATIVE) SARS-CoV-2 RNA (PETRA) (NEGATIVE) 08/03/21 08/03/21 Range/Units 21:25 21:27 WBC (4.23-9.07) K/mm3 RBC (4.63-6.08) M/mm3 Hgb (13.7-17.5) gm/dl Hct (40.1-51.0) % MCV (79.0-92.2) fl MCH (25.7-32.2) pg MCHC (32.2-35.5) g/dl RDW Std Deviation (35.1-43.9) fL Plt Count (163-337) K/mm3 MPV (9.4-12.3) fl Neutrophils % (Manual) (40-60) % Band Neutrophils % (0-10) % Lymphocytes % (Manual) (20-40) % Atypical Lymphs % % Monocytes % (Manual) (2-10) % Eosinophils % (Manual) (0.8-7.0) % Basophils % (Manual) (0.2-1.2) Platelet Estimate RBC Morph Comment D-Dimer, Quantitative (0.19-0.50) mg/L Sodium (136-145) mEq/L Potassium (3.5-5.1) mEq/L Chloride (98-107) mEq/L Carbon Dioxide (21-32) mEq/L Anion Gap (5-15) BUN (7-18) mg/dL Creatinine (0.7-1.3) mg/dL Est Cr Clr Drug Dosing mL/min Estimated GFR (MDRD) (>60) mL/min BUN/Creatinine Ratio (14-18) Glucose (70-99) mg/dL Lactic Acid (0.4-2.0) mmol/L Calcium (8.5-10.1) mg/dL Magnesium (1.8-2.4) mg/dL Total Bilirubin (0.2-1.0) mg/dL AST (15-37) U/L ALT (16-63) U/L Alkaline Phosphatase (46-116) U/L C-Reactive Protein (<1.0) mg/dL Total Protein (6.4-8.2) g/dl Albumin (3.4-5.0) g/dl Globulin gm/dL Albumin/Globulin Ratio (1-2) Urine Color Yellow (Yellow) Urine Appearance Clear (Clear) Urine pH 6.0 (5.0-8.0) Ur Specific [place] 1.020 (1.005-1.030) Urine Protein 2+ H (Negative) Urine Glucose (UA) 2+ H (Negative) Urine Ketones Negative (Negative) Urine Occult Blood Negative (Negative) Urine Nitrite Negative (Negative) Urine Bilirubin Negative (Negative) Urine Urobilinogen 0.2 (0.2-1.0) Ur Leukocyte Esterase Negative (Negative) Urine RBC 0-5 (0-5) /hpf Urine WBC 0-5 (0-5) /hpf Ur Squamous Epith Cells 0-5 (0-5) /hpf Urine Bacteria Few (FEW) /hpf Urine Mucus Few (FEW) /hpf Ketones (0.0-0.3) mM Influenza Type A RNA Negative (NEGATIVE) Influenza Type B RNA Negative (NEGATIVE) SARS-CoV-2 RNA (PETRA) Negative (NEGATIVE) Meds: Medications Discontinued Medications Generic Name Dose Route Start Last Admin Trade Name Freq PRN Reason Stop Dose Admin Sodium Chloride 1,000 mls @ 999 mls/hr 08/03/21 20:03 08/03/21 20:17 Normal Saline IV 08/03/21 21:03 999 mls/hr ONETIME ONE Administration Sodium Chloride 1,000 mls @ 150 mls/hr 08/03/21 22:30 08/03/21 22:48 Normal Saline IV 150 mls/hr ASDIRECTED [facility] Administration - Re-Assessments/Exams Free Text/Narrative Re-Assessment/Exam: 08/03/21 20:42 With the recurrent foot ulcer and a recent fever, the concern is whether or not the patient's right foot is infected, however, on examination, there is some callus, but no fluctuance and no drainage. I do not think his foot is infected, indicating a possible infection elsewhere. I have ordered a work-up that includes numerous blood tests, 2 sets of blood cultures, a urinalysis, a swab for the SARS-CoV-2 virus and influenza A + B viruses, and a chest x-ray. In the meantime, because the patient is somewhat hypotensive, he is getting a liter bolus of IV fluid. 08/03/21 21:14 Two-view chest radiograph reviewed. The cardiac silhouette is within normal limits. No pulmonary vascular congestion. No pleural effusions. No focal infiltrate. No pneumothorax. Formal read per the Radiologist pending. 08/03/21 21:36 The patient's CBC is unremarkable. His CMP is remarkable for a BUN slightly elevated at 23 with a Cr normal at 1.1, and slight hyperglycemia 119, with remainder of his CMP being unremarkable. His magnesium level is within normal limits at 2.1. His serum ketones are within normal limits at 0.05. His CRP is elevated at 6.5. His D-dimer is elevated at 1.10. Results of his lactic acid level, urinalysis, and swab for the SARS-CoV-2 virus and influenza viruses are still pending. Based on the above, I have ordered a CT angiogram of the chest to evaluate for a PE. 08/03/21 22:06 The patient's lactic acid level is within normal limits at 0.8. His urinalysis is unremarkable. 08/03/21 22:29 The patient's swab for the SARS-CoV-2 virus and influenza A + B viruses is negative. 08/04/21 00:16 CT angiogram of the chest is read by [facility] as: 1. Limited pulmonary arterial visualization as described. 2. There is no CT evidence of central pulmonary embolism. Peripheral emboli cannot be ruled in or ruled out. 3. Bilateral interstitial disease.Interstitial changes could reflect int erstitial fibrosis, interstitial edema, or interstitial inflammatory/infectious change. If interstitial pneumonia is suspect viral etiologies and atypical etiologies require consideration. Bacterial etiologies cannot not excluded. [sic] 4. Follow-up imaging studies recommended to assure complete resolution. 5. 7 mm right middle lobe nodule.For patients at low risk (minimal or absent history of smoking and of other known risk factors), recommend CT Chest at 6-12 months, then consider CT Chest at 18-24 months. For patients at high risk (history of smoking or of other known risk factors), recommend CT Chest at 6-12 months, then CT Chest at 18-24 months. (Reference: Rick) [sic] 08/04/21 00:26 Test results discussed with the patient and his . As above, today's work-up is remarkable for a CRP modestly elevated at 6.5, consistent with a viral illness, otherwise, his work-up was unremarkable. I will discharge him home with the recommendation that he follow-up with Dr. Patel to confirm no infection of the foot. As per the Radiologist's recommendation, I will also have the patient seek a repeat CT scan of his chest in 6-12 and 18-24 months. Departure - Departure Time of Disposition: 00:27 Disposition: Home, Self-Care 01 Condition: Good Clinical Impression: Fever - Discharge Information *PRESCRIPTION DRUG MONITORING PROGRAM REVIEWED*: Not Applicable *COPY OF PRESCRIPTION DRUG MONITORING REPORT IN PATIENT DOROTHY: Not Applicable Instructions: Fever, Adult, [id number] Referrals: PCP,None [Primary Care Provider] - Slade Patel II, DPM [Physician] - Forms: ED Department Discharge Additional Instructions: You were seen in the emergency room after developing a fever on . Work-up in the ER included numerous blood tests, 2 sets of blood cultures, a swab for the SARS-CoV-2 virus and influenza viruses, a urinalysis, a chest x- ray, and a CT angiogram of your chest. Your work-up indicates that you are suffering from a viral illness, however, you do not have either COVID-19 or influenza. Your right foot does not appear to be infected. We recommend that you follow-up with your Slot Technician, Dr. Slade Patel, to confirm that there is no infection of your foot. As discussed, the Radiologist found a 7 mm pulmonary nodule in your right middle lobe. They recommend that you undergo a repeat CT scan of your chest in 6 to 12 months, and again in 18 to 24 months. If any other problems, please do not hesitate to return to the ER. Sepsis Event Note (ED) - Focused Exam Vital Signs: Vital Signs Temp Pulse Resp BP Pulse Ox 08/03/21 18:34 37.6 C 84 20 96/59 L 96 - My Orders Last 24 Hours: My Active Orders 08/03/21 20:40 Blood Culture x2 Reflex Set [OM.PC] Stat 08/03/21 21:10 BLOOD CULTURE [MREF] Stat 08/03/21 21:20 BLOOD CULTURE [MREF] Stat 08/03/21 21:35 Ang Chest [CT] Stat - Assessment/Plan Last 24 Hours: My Active Orders 08/03/21 20:40 Blood Culture x2 Reflex Set [OM.PC] Stat 08/03/21 21:10 BLOOD CULTURE [MREF] Stat 08/03/21 21:20 BLOOD CULTURE [MREF] Stat 08/03/21 21:35 Ang Chest [CT] Stat
--- NOTE | 2021-08-03 21:17 | CR ---
Chest: PA and lateral views of the chest were obtained. Comparison: Prior chest x-ray of 12/06/17. Heart size and mediastinum are within normal limits. Central lung markings are mildly increased which appear stable from prior exam. Slight blunting of the lateral left costophrenic angle is noted which is stable. Mild disc space narrowing is noted within the spine. Impression: 1. Stable chest x-ray from prior exam. 2. Nothing acute is appreciated. Diagnostic code #2
[2021-08-03 22:23] LABS: CORONAVIRUS COVID-19 NAA NEGATIVE (NEGATIVE)
[2021-08-03] MEDS ORDERED: Sodium Chloride 0.9% 1,000 ML IV SCH (22:30)
--- NOTE | 2021-08-04 06:34 | CT ---
CT chest Technique: Multiple axial sections through the chest were obtained. Intravenous contrast was utilized. Study has been performed as a pulmonary angiogram protocol. Comparison: No prior chest CT, prior chest x-ray performed earlier on the same day (8:53 PM). Findings: Pulmonary arteries are not optimally opacified. No filling defects are seen within the main or proximal segmental branches to indicate pulmonary emboli. Smaller distal sub-segmental pulmonary emboli could easily be missed. Thoracic aorta shows no aneurysm. No mediastinal adenopathy is seen. No pericardial thickening is seen. Multiple small gallstones are seen within the gallbladder. There is mild esophageal wall thickening seen distally raising the possibility of gastroesophageal reflux. Lung window settings were reviewed which show mild to moderate patchy areas of increased density within the upper and lower lungs. Focal pleural-based nodular thickening is seen within the left base measuring 1.9 cm. Small subpleural based nodule measuring 7 mm is seen within the right middle lobe. Bone window settings were reviewed. No acute osseous abnormality is appreciated. Impression: 1. Pulmonary arteries are not optimally opacified. No findings of pulmonary embolism are seen within the main or proximal segmental branches. Distal emboli could be missed. 2. Mild to moderate patchy interstitial densities within both lungs. Findings suspicious for areas of possible pneumonia. Please correlate with patient's symptoms. 3. Small nodule within the right middle lobe, recommend repeat noncontrast chest CT study in 9 months to confirm stability. This would occur in April,. 4. Multiple small gallstones within the gallbladder. 5. Other findings as described above. Diagnostic code #9 I agree with preliminary report from [facility] finalized on 08/04/21, 1:08 AM CDT, code 1
== END 2021-08-04 00:37 | disposition home or self-care (01) ==
LOC: JD.ED 17:09
DX: R50.9 Fever, unspecified (principal); E78.00 Pure hypercholesterolemia, unspecified; I10 Essential (primary) hypertension; E11.9 Type 2 diabetes mellitus without complications; Z79.4 Long term (current) use of insulin; E66.9 Obesity, unspecified; Z68.33 Body mass index [BMI] 33.0-33.9, adult; Z88.2 Allergy status to sulfonamides; Z88.1 Allergy status to other antibiotic agents; Z87.891 Personal history of nicotine dependence; Z20.822 Contact with and (suspected) exposure to COVID-19
CPT/HCPCS: 0240U; 36415; 71046; 71275; 80053; 81001; 82009; 83605; 83735; 85007; 85027; 85379; 86140; 87040; 99284; J7030

== ENCOUNTER 2021-11-26 16:14 | Emergency (ER) | payer MEDICAID | END 2021-11-26 19:33 | disposition home or self-care (01) | LOC: JD.ED 16:14 → SUPCPDRO 16:14 → JD.ED 19:33 | DX: R00.2 Palpitations (principal); E11.649 Type 2 diabetes mellitus with hypoglycemia without coma; E78.00 Pure hypercholesterolemia, unspecified; I10 Essential (primary) hypertension; E66.9 Obesity, unspecified; Z68.35 Body mass index [BMI] 35.0-35.9, adult; Z88.1 Allergy status to other antibiotic agents; Z79.4 Long term (current) use of insulin | CPT/HCPCS: 36415; 71045; 71045-26; 80053; 82947; 83735; 84484; 85025; 93005; 99285-25 ==

== ENCOUNTER 2022-03-12 08:21 | Emergency (ER) | payer OTHER ==
[2022-03-12] MEDS ORDERED: Alum Hydrox/Mag Hydrox/Simeth 30 ML, Lidocaine 2% 15 ML PO ONE ×2 (09:25)
== END 2022-03-12 10:00 | disposition home or self-care (01) ==
LOC: JD.ED 08:21
DX: R10.13 Epigastric pain (principal); R07.89 Other chest pain; E78.00 Pure hypercholesterolemia, unspecified; I10 Essential (primary) hypertension; E11.9 Type 2 diabetes mellitus without complications; E66.9 Obesity, unspecified; Z68.35 Body mass index [BMI] 35.0-35.9, adult; Z88.2 Allergy status to sulfonamides; Z79.899 Other long term (current) drug therapy; Z79.4 Long term (current) use of insulin; Z86.16 Personal history of COVID-19
CPT/HCPCS: 71045; 74018; 99284; A9270

== ENCOUNTER 2023-01-19 10:09 | Emergency (ER) | payer MEDICAID, OTHER ==
[2023-01-19] MEDS ORDERED: Sodium Chloride 0.9% 1,000 ML IV STA (10:32)
[2023-01-19] MEDS ORDERED: Ondansetron 4 MG/2 ML SDV IVPUSH ONE (10:32)
[2023-01-19] MEDS ORDERED: Sodium Chloride 0.9% 10 ML Syringe FLUSH PRN (10:32)
[2023-01-19] MEDS ORDERED: HYDROmorphone 0.5 MG/0.5 ML Syringe IVPUSH ONE (10:34)
[2023-01-19] MEDS ORDERED: Iopamidol 612 MG/ML 100 ML Bottle IVPUSH ONE (10:40)
[2023-01-19] MEDS: Sodium Chloride 0.9% 10 ML Syringe FLUSH PRN ×2 (10:47→10:59)
== END 2023-01-19 13:00 | disposition home or self-care (01) ==
LOC: JD.ED 10:09
DX: K85.20 Alcohol induced acute pancreatitis without necrosis or infection (principal); E78.00 Pure hypercholesterolemia, unspecified; I10 Essential (primary) hypertension; E11.9 Type 2 diabetes mellitus without complications; E66.9 Obesity, unspecified; Z68.34 Body mass index [BMI] 34.0-34.9, adult; Z86.16 Personal history of COVID-19; Z88.2 Allergy status to sulfonamides; Z79.4 Long term (current) use of insulin; Z79.899 Other long term (current) drug therapy
CPT/HCPCS: 36415; 74177; 80053; 81001; 83690; 85025; 96361; 96374; 96375; 99284; J1170; J2405; J3490; J7030; Q9967

== ENCOUNTER 2023-02-16 23:45 | Emergency (ER) | payer MEDICAID ==
[2023-02-17] MEDS ORDERED: LORazepam 2 MG/ML SDV IVPUSH ONE ×2 (00:14→00:33)
[2023-02-17] MEDS ORDERED: Ondansetron 4 MG/2 ML SDV IVPUSH ONE (00:22)
[2023-02-17] MEDS ORDERED: Magnesium Oxide 400 MG Tab PO ONE (00:55)
[2023-02-17] MEDS ORDERED: Ondansetron 4 MG Tab.DIS PO ONE (02:56)
[2023-02-17] MEDS ORDERED: Potassium Chloride 20 MEQ Tab.ER PO ONE (03:47)
== END 2023-02-17 04:07 | disposition home or self-care (01) ==
LOC: JD.ED 23:45
DX: F10.20 Alcohol dependence, uncomplicated (principal); E11.9 Type 2 diabetes mellitus without complications; E78.00 Pure hypercholesterolemia, unspecified; I10 Essential (primary) hypertension; E66.9 Obesity, unspecified; Z88.1 Allergy status to other antibiotic agents; Z88.2 Allergy status to sulfonamides; Z79.4 Long term (current) use of insulin; Z79.899 Other long term (current) drug therapy; Z86.16 Personal history of COVID-19; Z68.33 Body mass index [BMI] 33.0-33.9, adult; Y90.0 Blood alcohol level of less than 20 mg/100 ml
CPT/HCPCS: 36415; 70450; 80053; 80307; 83735; 84484; 85025; 85610; 93005; 96374; 96375; 96376; 99285; A9270; J2060; J2405; 93010; 99284

== ENCOUNTER 2023-06-15 12:33 | Emergency (ER) | payer MEDICAID ==
[2023-06-15] MEDS ORDERED: Mupirocin Oint 22 GM Tube TOP STA (13:17)
== END 2023-06-15 13:27 | disposition home or self-care (01) ==
LOC: JD.ED 12:33
DX: E11.621 Type 2 diabetes mellitus with foot ulcer (principal); L97.419 Non-pressure chronic ulcer of right heel and midfoot with unspecified severity; E78.00 Pure hypercholesterolemia, unspecified; I10 Essential (primary) hypertension; E66.9 Obesity, unspecified; Z88.1 Allergy status to other antibiotic agents; Z79.4 Long term (current) use of insulin; Z79.899 Other long term (current) drug therapy; Z86.16 Personal history of COVID-19; Z87.891 Personal history of nicotine dependence; Z68.32 Body mass index [BMI] 32.0-32.9, adult
CPT/HCPCS: 99282; A9270; 99283